=== PATIENT | female | born 1980 | race Caucasian/White ===

== ENCOUNTER 2024-04-16 18:14 | Emergency (ER) | payer OTHER ==
[~2024-04-16] VITALS: Ht 152.4 cm; Wt 80.3 kg
[2024-04-16 18:15] VITALS: BP 150/83; PULSE 84; RESP 15; TEMP 98.7; O2SAT 99
[2024-04-16] MEDS: KETOROLAC 30 MG/ML VIAL IM ONE (19:38)
[2024-04-16] MEDS: LIDOCAINE 5% 1 EA PATCH TP ONE (19:40)
[2024-04-16] MEDS ORDERED: DICL20GE TP (20:15)
[2024-04-16] MEDS ORDERED: IBUP-2213 PO (20:15)
== END 2024-04-16 20:23 | disposition home or self-care (01) ==
LOC: MED 18:14
DX: M54.41 Lumbago with sciatica, right side (principal); R03.0 Elevated blood-pressure reading, without diagnosis of hypertension; Z79.899 Other long term (current) drug therapy
CPT/HCPCS: 72220; 81025; 96372; 99283; J1885; Q0092